=== PATIENT | male | born 1940 | race Hispanic/Latino ===

== ENCOUNTER 2020-12-19 12:13 | Emergency (ER) | payer OTHER ==
[2020-12-19 13:09] LABS: Absolute Lymphocytes (CBC) 0.8 K/uL (0.7-4.9); Basophils % 0.4 % (0-1.3); Hematocrit 38.1 % (39.6-49.0); Lymphocytes % 8.6 % (15.3-44.8); MPV 7.9 fL (7.6-11.3); RBC Red Blood Cell Count 4.16 M/uL (4.33-5.43)
[2020-12-19 13:23] LABS: ALT/SGPT 30 U/L (12-78); AST/SGOT 33 U/L (15-37); Albumin 4.1 g/dL (3.4-5.0); Alkaline Phosphatase 83 U/L (45-117); BUN Blood Urea Nitrogen 23 mg/dL (7-18); Bicarbonate 25 mmol/L (21-32); Bilirubin Direct 0.1 mg/dL (0-0.2); Bilirubin Total 0.4 mg/dL (0.2-1.0); Glucose Level 131 mg/dL (74-106); Lipase 58 U/L (73-393); Potassium 3.4 mmol/L (3.5-5.1); Protein, Total 7.3 g/dL (6.4-8.2); Sodium Level 140 mmol/L (136-145); Troponin (Emerg Dept Use Only) < 0.02 ng/mL (0.0-0.045)
--- NOTE | 2020-12-19 13:28 | RAD REPORT ---
EXAM DESCRIPTION: CT - Head Brain Wo Cont - 12/19/2020 1:18 pm CLINICAL HISTORY: Nausea and vomiting with dizziness COMPARISON: None. TECHNIQUE: Axial 5 mm thick images of the head were obtained without IV contrast. All CT scans are performed using dose optimization technique as appropriate and may include automated exposure control or mA/KV adjustment according to patient size. FINDINGS: No intracranial hemorrhage, mass, edema or shift of mid-line structures. No acute infarcti on changes seen. No abnormal extra-axial fluid collections. Mastoid air cells and visualized portions of the paranasal sinuses are clear. No acute bony findings. IMPRESSION: Negative non-contrast CT head examination.
[2020-12-19 13:30] LABS: Blood Morphology Comment NOT SEEN (NOT SEEN); Platelet Estimate ADEQ
--- NOTE | 2020-12-19 13:32 | RAD REPORT ---
EXAM DESCRIPTION: CTAbdomen Pelvis W Contrast - 12/19/2020 1:18 pm CLINICAL HISTORY: Abdominal pain. vomiting COMPARISON: No comparisons TECHNIQUE: Biphasic CT imaging of the abdomen and pelvis was performed with 100 ml non-ionic IV cont rast. All CT scans are performed using dose optimization technique as appropriate and may include automated exposure control or mA/KV adjustment according to patient size. FINDINGS: The lung bases are clear.Multi-vessel coronary artery disease. No focal liver lesions are identified. Gallbladder is within normal limits. The adrenal glands are wi thin normal limits. The spleen is within normal limits. A couple of subcentimeter renal lesions are n oted which are too small to characterize but statistically benign. Aortic atherosclerosis. No bowel o bstruction. Normal appendix. No bowel obstruction, free air, free fluid or abscess. The appendix is normal. No evidence of signi ficant lymphadenopathy. No suspicious bony findings. Grade 1 anterolisthesis of L5 on S1. IMPRESSION: No acute intra-abdominal or pelvic finding.
--- NOTE | 2020-12-19 16:56 | EDPHYS ---
Physician Documentation [facility] Name: Teddy Loo Age: 80 yrs Sex: Male : 1940 Arrival Date: 12/19/2020 Time: 12:27 Bed 30 Private MD: ED Physician Andrés Fang HPI: 12/19 13:24 This 80 yrs old Male presents to ER via EMS with complaints of Nausea/Vomiting.rn 13:24 The patient presents to the emergency department with nausea, vomiting. Onset: The rn symptoms/episode began/occurred just prior to arrival. Possible causes: unknown. The symptoms are aggravated by nothing. The symptoms are alleviated by nothing. Associated signs and symptoms: Pertinent positives: nausea, vomiting, dizziness. Severity of symptoms: At their worst the symptoms were moderate in the emergency department the symptoms have improved. The patient has not experienced similar symptoms in the past. The patient has not recently seen a physician. Reports eating at restaurant, had big breakfast, stood up to pay, felt dizzy, unsteady, assoc with about 5 episodes on NBNB emesis, no focal weakness/numbness/vision change. Pt states felt fine prior to eating. He thinks got food poisoning, given nausea medication by EMS, feels better. . Historical: - Allergies: 12:38 No Known Allergies; zb - Home Meds: 12:38 None [Active]; zb - PMHx: 12:38 None; zb - PSHx: 12:38 Vasectomy; zb - Immunization history:: Adult Immunizations up to date, Client reports having NOT received the Covid vaccine. Pneumococcal vaccine status is unknown, Flu vaccine status is unknown. - Social history:: Smoking status: Patient denies any tobacco usage or history of. - Family history:: not pertinent. - Hospitalizations: : No recent hospitalization is reported. ROS: 13:26 Constitutional: Negative for fever, chills, and weight loss, Eyes: Negative for injury, rn pain, redness, and discharge, ENT: Negative for injury, pain, and discharge, Neck: Negative for injury, pain, and swelling, Cardiovascular: Negative for chest pain, palpitations, and edema, Respiratory: Negative for shortness of breath, cough, wheezing, and pleuritic chest pain, Abdomen/GI: Negative for abdominal pain, diarrhea, and constipation, Back: Negative for injury and pain, MS/Extremity: Negative for injury and deformity, Skin: Negative for injury, rash, and discoloration, Neuro: Negative for headache, weakness, numbness, tingling, and seizure. Exam: 13:26 Constitutional: This is a well developed, well nourished patient who is awake, alert, rn and in no acute distress. Eyes closed. Head/Face: Normocephalic, atraumatic. Eyes: Pupils equal round and reactive to light, extra-ocular motions intact. ENT: dry MM Neck: Trachea midline, no masses palpated, and no cervical lymphadenopathy. Supple, full range of motion without nuchal rigidity, or vertebral point tenderness. No Meningismus. Cardiovascular: Regular rate and rhythm. No pulse deficits. Respiratory: No increased work of breathing, no retractions or nasal flaring. Abdomen/GI: Soft, non-tender Skin: Warm, dry MS/ Extremity: Pulses equal, no cyanosis. Neuro: Awake and alert, GCS 15, moves all 4 extremities, sensation intact, EOMI intact, coordination intact. Vital Signs: 12:28 BP 130 / 77; Pulse 84; Resp 16; Temp 98.7; Pulse Ox 95% on R/A; Weight 77.11 kg; Height zb 5 ft. 7 in. (170.18 cm); Pain 0/10; 13:40 BP 130 / 78; Pulse 68; Resp 16; Pulse Ox 98% on R/A; zb 14:34 BP 102 / 71; Pulse 53; Resp 16; Pulse Ox 100% on R/A; zb 16:30 BP 120 / 80; Pulse 62; Resp 16; Pulse Ox 100% on R/A; zb 12:28 Body Mass Index 26.63 (77.11 kg, 170.18 cm) zb NIH Stroke Scale Scores: 14:45 NIHSS Score: 0 rn MDM: 12:29 Patient medically screened. rn 14:58 ED course: CT head and abdomen negative, went to reevaluate patient, RN states was a rn little dizzy walking to bathroom, observed patient walkout from bathroom with normal gait, ambulated up and down [place] with normal gait, normal turning, patient even jogged down hallway, states feels back to normal. Given RN noticed something different, will continue to observe and ambulate patient once again. . 16:54 Differential diagnosis: viral gastroenteritis, gastroenteritis, food poisoning, rn vertigo, posterior CVA. Data reviewed: vital signs, nurses notes, lab test result(s), EKG, radiologic studies, CT scan, and as a result, I will discharge patient. Counseling: I had a detailed discussion with the patient and/or guardian regarding: the historical points, exam findings, and any diagnostic results supporting the discharge/admit diagnosis, lab results, radiology results, the need for outpatient follow up, to return to the emergency department if symptoms worsen or persist or if there are any questions or concerns that arise at home. Response to treatment: the patient's symptoms have markedly improved after treatment, the patient's symptoms have resolved after treatment, the patient's condition has returned to base line, the patient is now symptom free, and as a result, I will discharge patient. Special discussion: I discussed with the patient/guardian in detail that at this point there is no indication for admission to the hospital. It is understood, however, that if the symptoms persist or worsen the patient needs to return immediately for re-evaluation. ED course: Pt ambulated once again, normal, turns normally, ambulatory to bathroom and up and down hallway without assistance. . 12/19 12:38 Order name: Basic Metabolic Panel; Complete Time: 13:24 rn 12/19 12:38 Order name: CBC with Diff; Complete Time: 14:08 rn 12/19 12:38 Order name: Hepatic Function; Complete Time: 13:24 rn 12/19 12:38 Order name: Lipase; Complete Time: 13:24 rn 12/19 12:38 Order name: Troponin (emerg Dept Use Only); Complete Time: 13:24 rn 12/19 13:30 Order name: Manual Differential; Complete Time: 14:08 EDMS 12/19 12:38 Order name: IV Saline Lock; Complete Time: 12:53 rn 12/19 12:38 Order name: Labs collected and sent; Complete Time: 12:53 rn 12/19 12:38 Order name: EKG; Complete Time: 12:39 rn 12/19 12:38 Order name: EKG - Nurse/Tech; Complete Time: 12:41 rn 12/19 12:38 Order name: CT Head Brain wo Cont; Complete Time: 14:08 rn 12/19 12:41 Order name: CT Abd/Pelvis - IV Contrast Only; Complete Time: 14:08 rn Administered Medications: No medications were administered Disposition Summary: 12/19/20 16:55 Discharge Ordered Location: Home rn Problem: new rn Symptoms: have improved rn Condition: Stable rn Diagnosis - Dizziness and giddiness rn - Nausea with vomiting, unspecified rn Followup: rn - With: Private Physician - When: As needed - Reason: Recheck today's complaints, Re-evaluation by your physician Discharge Instructions: - Discharge Summary Sheet rn - Dizziness rn - Nausea and Vomiting, Adult rn Forms: - Medication Reconciliation Form rn - Thank You Letter rn - Antibiotic rn pain management - Prescription Opioid Use rn NIH Stroke Scale - NIH Stroke Score Date: 12/19/2020 Time: 14:45 Total Score = 0 1a. Level of Consciousness (LOC) - 0(Alert) 1b. Level of Consciousness (LOC) (Month \T\ Age) - 0(Both) 1c. LOC Commands (Open \T\ Closes Eyes/Stapler Hand) - 0(Both) 2. Best Gaze (Lateral Gaze Paresis) - 0(Normal) 3. Visual Field Loss - 0(No visual loss) 4. Facial Palsy - 0(Normal) 5a. Left Arm: Motor (10-second hold) - 0(No drift) 5b. Right Arm: Motor (10-second hold) - 0(No drift) 6a. Left Leg: Motor (5-second hold - always test supine) - 0(No drift) 6b. Right Leg: Motor (5-second hold - always test supine) - 0(No drift) 7. Limb Ataxia (finger/nose \T\ heel/rodgers - test with eyes open) - 0(Absent) 8. Sensory Loss (pinprick arms/legs/face) - 0(Normal) 9. Best Language: Aphasia (description/naming/reading) - 0(No aphasia) 10. Dysarthria (speech clarity - read or repeat words) - 0(Normal) 11. Extinction and Inattention (visual/tactile/auditory/spatial/personal) - 0(No abnormality) Initials: rn Signatures: Dispatcher [employer] EDMS Andrés Fang MD MD rn Brown, KAVITA Mixon RN Corrections: (The following items were deleted from the chart) 13:26 13:24 Reports eating at restaurant, had big breakfast, stood up to pay, felt rn dizzy, unsteady, assoc with about 5 episodes on NBNB emesis, no focal weakness/numbness/vision change. . rn
--- NOTE | 2020-12-19 16:56 | ER ---
Nurse's Notes [facility] Name: Teddy Loo Age: 80 yrs Sex: Male : 1940 Arrival Date: 12/19/2020 Time: 12:27 Bed 30 Private MD: Diagnosis: Dizziness and giddiness;Nausea with vomiting, unspecified Presentation: 12/19 12:28 Chief complaint: EMS states: 2- hours ago patient was at [employer] eating breakfast. zb Stated to feel nausea and dizzy. Stated vomiting in the restroom x5. Currently nausea. not actively vomiting. Coronavirus screen: Client denies travel out of the [place] in the last 14 days. Ebola Screen: No symptoms or risks identified at this time. Initial Sepsis Screen: Does the patient meet any 2 criteria? No. Patient's initial sepsis screen is negative. Does the patient have a suspected source of infection? No. Patient's initial sepsis screen is negative. Risk Assessment: Do you want to hurt yourself or someone else? Patient reports no desire to harm self or others. Onset of symptoms was December 19, 2020. 12:28 Acuity: BAUDILIO 3 zb 12:28 Method Of Arrival: EMS: [facility] zb Triage Assessment: 12:38 General: Appears in no apparent distress. Behavior is calm, cooperative, appropriate zb for age. Pain: Denies pain. Neuro: Level of Consciousness is awake, alert, obeys commands, Oriented to person, place, time, situation, Furniture Servicer are equal bilaterally Moves all extremities. Full function Pupils are PERRLA. Cardiovascular: Capillary refill < 3 seconds Patient's skin is warm and dry. Respiratory: Airway is patent Respiratory effort is even, unlabored, Respiratory pattern is regular, symmetrical. GI: Abdomen is flat, Bowel sounds present X 4 quads. Reports nausea, vomiting. Derm: Skin is intact, is healthy with good turgor, Skin is dry, Skin is normal, Skin temperature is warm. Musculoskeletal: Circulation, motion, and sensation intact. Range of motion: intact in all extremities. Historical: - Allergies: 12:38 No Known Allergies; zb - Home Meds: 12:38 None [Active]; zb - PMHx: 12:38 None; zb - PSHx: 12:38 Vasectomy; zb - Immunization history:: Adult Immunizations up to date, Client reports having NOT received the Covid vaccine. Pneumococcal vaccine status is unknown, Flu vaccine status is unknown. - Social history:: Smoking status: Patient denies any tobacco usage or history of. - Family history:: not pertinent. - Hospitalizations: : No recent hospitalization is reported. Screenin:40 Abuse screen: Denies threats or abuse. Denies injuries from another. Nutritional zb screening: No deficits noted. Tuberculosis screening: No symptoms or risk factors identified. Fall Risk No fall in past 12 months (0 pts). Assessment: 12:40 Reassessment: ECP at bedside. zb 13:40 Reassessment: pt appears to be resting at this time. zb 14:34 Reassessment: Patient appears in no apparent distress at this time. Patient and/or zb family updated on plan of care and expected duration. Pain level reassessed. Patient is alert, oriented x 3, equal unlabored respirations, skin warm/dry/pink. pt appears to be sleeping at this time. 14:45 Reassessment: patient appears to be still dizzy got up to use restroom. gait unsteady. zb notified ECP. 15:00 Reassessment: ECP reassessed patient no dizziness at this time. zb 16:16 Reassessment: Patient appears in no apparent distress at this time. Patient and/or zb family updated on plan of care and expected duration. Pain level reassessed. Patient is alert, oriented x 3, equal unlabored respirations, skin warm/dry/pink. no c/o of issues at this time. 17:21 Reassessment: Patient appears in no apparent distress at this time. Patient and/or zb family updated on plan of care and expected duration. Pain level reassessed. Patient is alert, oriented x 3, equal unlabored respirations, skin warm/dry/pink. patient ambulated out. taxi called for patient. Vital Signs: 12:28 BP 130 / 77; Pulse 84; Resp 16; Temp 98.7; Pulse Ox 95% on R/A; Weight 77.11 kg; Height zb 5 ft. 7 in. (170.18 cm); Pain 0/10; 13:40 BP 130 / 78; Pulse 68; Resp 16; Pulse Ox 98% on R/A; zb 14:34 BP 102 / 71; Pulse 53; Resp 16; Pulse Ox 100% on R/A; zb 16:30 BP 120 / 80; Pulse 62; Resp 16; Pulse Ox 100% on R/A; zb 12:28 Body Mass Index 26.63 (77.11 kg, 170.18 cm) zb NIH Stroke Scale Scores: 14:45 NIHSS Score: 0 graduate internship Course: 12:27 Patient arrived in ED. zb 12:29 Andrés Fang MD is Attending Physician. rn 12:37 Triage completed. zb 12:41 Apurva Connors, RN is Primary Nurse. zb 12:41 Patient has correct armband on for positive identification. mess attendant crew on. Pulse zb ox on. NIBP on. Door closed. Noise minimized. 13:18 CT Head Brain wo Cont In Process Unspecified. EDMS 13:18 CT Abd/Pelvis - IV Contrast Only In Process Unspecified. EDMS 13:57 Maintain EMS IV. Dressing intact. Good blood return noted. Site clean \T\ dry. Gauge \T\ zb site: 20G R wrist. . 14:01 Initial lab(s) drawn, by me, sent to lab. EKG done, by tool grinding technician. reviewed by Andrés Fang MD. 14:02 Arm band placed on. zb 17:21 No provider procedures requiring assistance completed. IV discontinued, intact, zb bleeding controlled, No redness/swelling at site. Pressure dressing applied. Administered Medications: No medications were administered Outcome: 16:55 Discharge ordered by . rn 17:21 Discharged to home ambulatory. zb 17:21 Condition: stable 17:21 Discharge instructions given to patient, Instructed on discharge instructions, follow up and referral plans. Demonstrated understanding of instructions, follow-up care. 17:22 Patient left the ED. zb NIH Stroke Scale - NIH Stroke Score Date: 12/19/2020 Time: 14:45 Total Score = 0 1a. Level of Consciousness (LOC) - 0(Alert) 1b. Level of Consciousness (LOC) (Month \T\ Age) - 0(Both) 1c. LOC Commands (Open \T\ Closes Eyes/Extractor Machine Operator) - 0(Both) 2. Best Gaze (Lateral Gaze Paresis) - 0(Normal) 3. Visual Field Loss - 0(No visual loss) 4. Facial Palsy - 0(Normal) 5a. Left Arm: Motor (10-second hold) - 0(No drift) 5b. Right Arm: Motor (10-second hold) - 0(No drift) 6a. Left Leg: Motor (5-second hold - always test supine) - 0(No drift) 6b. Right Leg: Motor (5-second hold - always test supine) - 0(No drift) 7. Limb Ataxia (finger/nose \T\ heel/rodgers - test with eyes open) - 0(Absent) 8. Sensory Loss (pinprick arms/legs/face) - 0(Normal) 9. Best Language: Aphasia (description/naming/reading) - 0(No aphasia) 10. Dysarthria (speech clarity - read or repeat words) - 0(Normal) 11. Extinction and Inattention (visual/tactile/auditory/spatial/personal) - 0(No abnormality) Initials: rn Signatures: Dispatcher [employer] Andrés Rey MD MD rn Brown, Zipporah, RN RN zb Corrections: (The following items were deleted from the chart) 14:46 14:45 Reassessment: patient appears to be still dizzy got up to use restroom. zb gait unsteady. zb
[2020-12-19 17:31] VITALS: TEMP 98.7
[2020-12-19 17:34] VITALS: O2SAT 100
[2020-12-19 17:35] VITALS: BP 120/80
== END 2020-12-19 17:22 | disposition home or self-care (01) ==
LOC: ER 12:13
DX: R11.2 Nausea with vomiting, unspecified (principal); R42 Dizziness and giddiness
CPT/HCPCS: 93005; 85025; 80048; 36415; 82565; 80076; 84484; 83690; 70450; 74177; 99284; Q9967

== ENCOUNTER 2023-05-01 14:10 | Emergency (ER) | payer OTHER ==
--- OUTSIDE RECORDS SUMMARY | 2023-05-01 14:16 | XMS REPORT | Continuity of Care Document ---
:1940 Author Organization [facility] t Address [address] [place] [address] [place] [address] Care Team Providers Name Role Phone Olesya Stone Attending Clinician Unavailable Problems This patient has no known problems. Allergies, Adverse Reactions, Alerts This patient has no known allergies or adverse reactions. Medications This patient has no known medications. Procedures This patient has no known procedures. Encounters Start End Encounter Admission Attending Care Care Encounter Source Date/Time Date/Time Type Type Clinicians Facility Department ID 2023-01-09 Outpatient COY Stone [facility] [id number] Common 13:05:00 Olesya [id number] [facility] 2021-08-23 Outpatient [facility] [id number] Common 14:26:03 [facility] Results This patient has no known results.
--- NOTE | 2023-05-01 14:56 | RAD REPORT ---
EXAM DESCRIPTION: Ellen Single View05/01/2023 2:34 pm CLINICAL HISTORY: fall COMPARISON: No comparisons TECHNIQUE: Portable AP view of the chest. FINDINGS: The lungs are clear. No pneumothorax or effusion. The cardiomediastinal contours are unre markable. IMPRESSION: No acute cardiopulmonary process.
--- NOTE | 2023-05-01 14:57 | RAD REPORT ---
EXAM DESCRIPTION: ISABEL RUBIO - 05/01/2023 2:34 pm CLINICAL HISTORY: PAIN COMPARISON: No comparisons TECHNIQUE: Left hand, 3 views. FINDINGS: No fracture is identified. There is no dislocation or periosteal reaction noted. Joint alignment is maintained. Mild soft tissue swelling particularly along the second digit. No foreign body or other soft tissue a bnormality. IMPRESSION: Soft tissue swelling as above. No acute osseus abnormality.
[2023-05-01] MEDS ORDERED: TDAP (DIPHTH,PERTUSS(ACELL),TET VAC) 0.5 ML VIAL IMVAC ONE (15:30)
--- NOTE | 2023-05-01 15:32 | RAD REPORT ---
EXAM DESCRIPTION: CT - CTHCSPWOC - 05/01/2023 2:37 pm CLINICAL HISTORY: fall TECHNIQUE: Axial thin cut noncontrast CT images of the head were obtained. Axial thin cut noncontrast CT images of the cervical spine were obtained. Multiplanar reformatted images were generated and reviewed. All CT scans are performed using dose optimization technique as appropriate and may include automated exposure control or mA/KV adjustment according to patient size. FINDINGS: CT HEAD WITHOUT CONTRAST: No acute hemorrhage, hydrocephalus or extra-axial collection is identified. Stable calcific cortical focus along the right temporal cortex. No areas of brain edema or midline shift. The paranasal sinuses show mild mucosal thickening. mastoids are clear.The calvarium is intact. CT CERVICAL SPINE WITHOUT CONTRAST: No fracture or subluxation.No prevertebral soft tissues swelling is identified. IMPRESSION: No acute traumatic intracranial or cervical spine findings.
[2023-05-01 15:34] LABS: Absolute Lymphocytes (CBC) 0.8 K/uL (0.7-4.9); Hematocrit 38.4 % (39.6-49.0); Lymphocytes % 9.2 % (15.3-44.8); MCV 93.4 fL (80-100); MPV 7.1 fL (7.6-11.3); Platelets 196 thou/uL (152-406); RBC Red Blood Cell Count 4.11 M/uL (4.33-5.43)
--- NOTE | 2023-05-01 15:38 | RAD REPORT ---
EXAM DESCRIPTION: CT - CTFB CLINICAL HISTORY: FALL COMPARISON: No comparisons TECHNIQUE: Axial thin cut noncontrast CT images of the face were obtained with sagittal and coronal reconstruction images. All CT scans are performed using dose optimization technique as appropriate and may include automated exposure control or mA/KV adjustment according to patient size. FINDINGS: Left infraorbital and premalar soft tissue swelling and small hematoma. No acute facial bone fracture is seen.The mandible is intact. The globes and orbital contents are grossly unremarkable.The paranasal sinuses show mild scattered mu cosal thickening. Periapical lucencies along the maxillary dentition, please correlate with dental ex am IMPRESSION: Left infraorbital and premalar soft tissue swelling and small hematoma. Negative for fac ial bone fracture.
[2023-05-01 15:53] LABS: Potassium 4.1 mEq/L (3.5-5.1)
--- NOTE | 2023-05-01 16:44 | ER ---
Nurse's Notes [facility] Name: Teddy Loo Age: 82 yrs Sex: Male : 1940 Arrival Date: 05/01/2023 Time: 14:10 Bed 6 Private MD: Diagnosis: Facial contusion;Facial Abrasion;Fall on same level, unspecified Presentation: 05/01 14:18 Chief complaint: EMS states: "toned out for stumbling while walking and falling. Pt mb9 landed on face, left hand, and left knee. Laceration and bruising noted to left cheek.". Coronavirus screen: Vaccine status: Patient reports being unvaccinated. Ebola Screen: No symptoms or risks identified at this time. Initial Sepsis Screen: Does the patient meet any 2 criteria? No. Patient's initial sepsis screen is negative. Does the patient have a suspected source of infection? No. Patient's initial sepsis screen is negative. Risk Assessment: Do you want to hurt yourself or someone else? Patient reports no desire to harm self or others. Onset of symptoms was May 01, 2023. 14:18 Method Of Arrival: EMS: [facility] mb9 14:18 Acuity: BAUDILIO 3 mb9 Triage Assessment: 14:21 General: Appears in no apparent distress. Behavior is calm, cooperative. Pain: mb9 Complains of pain in scalp, left hand and left leg. EENT: No signs and/or symptoms were reported regarding the EENT system. Neuro: Ramirez Agitation-Sedation Scale (RASS): 0 - Alert and Calm Level of Consciousness is awake, alert, obeys commands, Oriented to person, place, time, situation, Appropriate for age. Cardiovascular: Patient's skin is warm and dry. Respiratory: Airway is patent Respiratory effort is even, unlabored, Respiratory pattern is regular, symmetrical. GI: No signs and/or symptoms were reported involving the gastrointestinal system. : No signs and/or symptoms were reported regarding the genitourinary system. Derm: Bruising that is dark purple, on face, left hand and left arm. Musculoskeletal: Range of motion: intact in all extremities. Historical: - Allergies: 14:18 No Known Allergies; mb9 - Home Meds: 14:18 None [Active]; mb9 - PMHx: 14:18 None; mb9 - PSHx: 14:18 Vasectomy; mb9 - Immunization history:: Adult Immunizations up to date. - Social history:: Smoking status: Patient denies any tobacco usage or history of. Screenin:00 [facility] ED Fall Risk Assessment (Adult) Score/Fall Risk Level 3 or more points = High jl Risk Oriented to surroundings, Maintained a safe environment. Abuse screen: Denies threats or abuse. Denies injuries from another. Nutritional screening: No deficits noted. Tuberculosis screening: No symptoms or risk factors identified. Assessment: 17:27 General: Appears in no apparent distress. uncomfortable, Behavior is calm, cooperative, jl7 appropriate for age. Pain: Denies pain. Neuro: Level of Consciousness is awake, alert, obeys commands, Oriented to person, place, time, situation. Cardiovascular: Patient's skin is warm and dry. Respiratory: Airway is patent Respiratory effort is even, unlabored, Respiratory pattern is regular, symmetrical. Derm: Skin is pink, warm \\T\\ dry. Wound noted face Wound is superficial abrasions Bruising that is bright red, dark purple, on left eye. 17:41 Reassessment: Pt unable to locate a ride home for discharge, housekeeper/custodian/laundry worker gave 7 approval for Taxi ride home. Vital Signs: 14:18 BP 120 / 74; Pulse 105; Resp 18; Temp 98; Pulse Ox 100% ; Weight 54.43 kg; Height 5 ft. mb9 7 in. ; 17:26 BP 134 / 74; Pulse 98; Resp 15; Pulse Ox 100% ; jl7 14:18 Body Mass Index 18.79 (54.43 kg, 170.18 cm) mb9 ED Course: 14:13 Patient arrived in ED. mb9 14:15 Adrian Stearns DO is Attending Physician. ms3 14:18 Arm band placed on. mb9 14:21 Triage completed. mb9 14:36 XRAY Chest (1 view) In Process Unspecified. EDMS 14:36 Hand Left 3 View XRAY In Process Unspecified. EDMS 14:39 CT Head C Spine In Process Unspecified. EDMS 14:39 Facial Bones W/ Mpr In Process Unspecified. EDMS 15:10 Cooper Hutson, KAVITA is Primary Nurse. jl7 15:28 Initial lab(s) drawn, by ED staff, sent to lab. Inserted saline lock: 22 gauge in right jl7 antecubital area, using aseptic technique. Blood collected. 16:30 Patient has correct armband on for positive identification. Provided Education on: use jl7 of call hightower. 16:43 Abimael Turner DO is Referral Physician. ms3 17:30 No provider procedures requiring assistance completed. IV discontinued, intact, jl7 bleeding controlled, No redness/swelling at site. Pressure dressing applied. Administered Medications: 15:28 Drug: Boostrix Tdap IM 0.5 ml IM once; as a single dose Route: IM; Site: right deltoid; jl7 17:26 Follow up: Response: No adverse reaction jl7 Medication: 17:27 Vaccine Information Statement (VIS) provided today. Questions and/or concerns jl7 addressed. VIS edition date: January 2021. Outcome: 16:43 Discharge ordered by . ms3 17:58 Discharged to home ambulatory, via Taxi jl7 17:58 Condition: stable 17:58 Discharge instructions given to patient, Instructed on discharge instructions, follow up and referral plans. Demonstrated understanding of instructions, follow-up care, 17:58 Patient left the ED. jl7 Signatures: Dispatcher [employer] EDMS Cooper Hutson RN RN jl7 Adrian Stearns DO DO ms3 Neli Hernández, RN RN mb9
--- NOTE | 2023-05-01 16:44 | EDPHYS ---
Physician Documentation [facility] Name: Teddy Loo Age: 82 yrs Sex: Male : 1940 Arrival Date: 05/01/2023 Time: 14:10 Bed 6 Private MD: ED Physician Adrian Stearns HPI: 05/01 16:43 This 82 yrs old Male presents to ER via EMS with complaints of Fall Injury. ms3 16:43 82-year-old male with no past medical history presents for fall from standing that ms3 occurred approximate 2 and half hours prior to arrival. Patient states he was walking to B when he became tired, stumbled and fell. Patient is complaining of left hand and left facial pain. Historical: - Allergies: 14:18 No Known Allergies; mb9 - Home Meds: 14:18 None [Active]; mb9 - PMHx: 14:18 None; mb9 - PSHx: 14:18 Vasectomy; mb9 - Immunization history:: Adult Immunizations up to date. - Social history:: Smoking status: Patient denies any tobacco usage or history of. ROS: 16:43 Constitutional: Negative for fever, and chills. Neck: Negative for injury, pain, and ms3 swelling, Cardiovascular: Negative for chest pain, and palpitations. Respiratory: Negative for shortness of breath, cough, wheezing, and pleuritic chest pain, Abdomen/GI: Negative for abdominal pain, nausea, vomiting, diarrhea, and constipation, MS/Extremity: Negative for injury and deformity, 16:43 Skin: Positive for abrasion(s), discoloration, 16:43 All other systems are negative, Exam: 16:43 Constitutional: This is a well developed, well nourished patient who is awake, alert, ms3 and in no acute distress. Head/Face: Normocephalic, atraumatic. Neck: Trachea midline, no cervical lymphadenopathy. Supple, full range of motion without nuchal rigidity, or vertebral point tenderness. No Meningismus. Chest/axilla: Normal chest wall appearance and motion. Nontender with no deformity. Cardiovascular: Regular rate and rhythm with a normal S1 and S2. No gallops, murmurs, or rubs. Normal PMI, no JVD. No pulse deficits. Respiratory: Lungs have equal breath sounds bilaterally, clear to auscultation and percussion. No rales, rhonchi or wheezes noted. No increased work of breathing, no retractions or nasal flaring. Abdomen/GI: Soft, non-tender, with normal bowel sounds. No distension or tympany. No guarding or rebound. No evidence of tenderness throughout. 16:43 Skin: Appearance: injury, abrasion(s), moderate sized abrasion noted, of the left arm and face and left hand and right knee, Vital Signs: 14:18 BP 120 / 74; Pulse 105; Resp 18; Temp 98; Pulse Ox 100% ; Weight 54.43 kg; Height 5 ft. mb9 7 in. ; 17:26 BP 134 / 74; Pulse 98; Resp 15; Pulse Ox 100% ; jl7 14:18 Body Mass Index 18.79 (54.43 kg, 170.18 cm) mb9 MDM: 14:15 Patient medically screened. ms3 16:43 Differential diagnosis: abrasion, closed head injury, contusion, fracture. Data ms3 reviewed: vital signs, nurses notes, lab test result(s), radiologic studies, and as a result, I will discharge patient. I considered the following discharge prescriptions or medication management in the emergency department Medications were administered in the Emergency Department. See MAR. Historians other than the Patient: EMS: [facility]. Counseling: I had a detailed discussion with the patient and/or guardian regarding the historical points, exam findings, and any diagnostic results supporting the discharge/admit diagnosis, lab results, radiology results, the need for outpatient follow up, to return to the emergency department if symptoms worsen or persist or if there are any questions or concerns that arise at home. Special discussion: I discussed with the patient/guardian in detail that at this point there is no indication for admission to the hospital. It is understood, however, that if the symptoms persist or worsen the patient needs to return immediately for re-evaluation. ED course: Lab and CT findings with patient. Patient to follow-up with primary care physician in 2 to 3 days. Patient understands and agrees with plan. All questions were answered. Return precautions discussed include worsening symptoms, or any other concerns. On reevaluation patient is alert and oriented x 4, no apparent distress, nontoxic-appearing, ambulatory in the emergency department, speaking full sentences. 05/01 14:16 Order name: Basic Metabolic Panel; Complete Time: 15:57 ms3 05/01 14:16 Order name: CBC with Diff; Complete Time: 15:42 ms3 05/01 14:16 Order name: CT Head C Spine; Complete Time: 15:42 ms3 05/01 14:16 Order name: XRAY Chest (1 view); Complete Time: 15:42 ms3 05/01 14:16 Order name: Hand Left 3 View XRAY; Complete Time: 15:42 ms3 05/01 14:27 Order name: Facial Bones W/ Mpr; Complete Time: 15:42 EDMS 05/01 14:16 Order name: Labs collected and sent; Complete Time: 15:28 ms3 Administered Medications: 15:28 Drug: Boostrix Tdap IM 0.5 ml IM once; as a single dose Route: IM; Site: right deltoid; jl7 17:26 Follow up: Response: No adverse reaction jl7 Disposition Summary: 05/01/23 16:43 Discharge Ordered Notes: Location: Home ms3 Condition: Stable ms3 Diagnosis - Facial contusion ms3 - Facial Abrasion ms3 - Fall on same level, unspecified ms3 Followup: ms3 - With: Abimael Turner DO - When: 2 - 3 days - Reason: Recheck today's complaints Discharge Instructions: - Discharge Summary Sheet ms3 - Facial or Scalp Contusion ms3 - Abrasion, [id number] ms3 Forms: - Medication Reconciliation Form ms3 - Thank You Letter ms3 - Antibiotic Education ms3 - Prescription Opioid Use ms3 - Patient Portal Instructions ms3 - Leadership Thank You Letter ms3 Signatures: Dispatcher [employer] Cooper Hanson, RN RN jl7 Adrian Stearns DO DO ms3 Neli Hernández RN RN mb9
[2023-05-01 18:23] VITALS: TEMP 98; O2SAT 100
[2023-05-01 18:24] VITALS: BP 134/74
== END 2023-05-01 17:58 | disposition home or self-care (01) ==
LOC: ER 14:10
DX: S00.81XA Abrasion of other part of head, initial encounter (principal); S00.83XA Contusion of other part of head, initial encounter; W01.0XXA Fall on same level from slipping, tripping and stumbling without subsequent striking against object, initial encounter
CPT/HCPCS: 36415; 70450; 70486; 71045; 72125; 76377; 80048; 85025; 96372; 99284